=== PATIENT | female | born 1950 | race Caucasian/White ===

== ENCOUNTER 2017-10-03 16:00 | Emergency (ER) | payer MEDICARE, MEDICAID ==
[~2017-10-03] VITALS: Ht 175.3 cm; Wt 97.1 kg
[~2017-10-03 16:00] MED LIST: ASPI81TA82 PO; ENOX100P SQ; METO100T PO; PRAV20 PO; WARF5TAB PO; WARF7.5T4 PO
[2017-10-03 16:08] VITALS: BP 155/72; PULSE 81; RESP 18; TEMP 98; O2SAT 92
--- NOTE | 2017-10-03 16:56 | PD ---
HPI Chief Complaint: Pain: Acute or Chronic Time Seen by Provider: 16:22 Travel History International Travel<30 days: No Contact w/Intl Traveler<30days: No Traveled to known affect area: No History of Present Illness HPI This patient complains of a vague discomfort and contraction like throbbing sensation just above her left clavicle. This occurred on and off during the day yesterday. Today she is not having and she feels fine. She is concerned because she has history of vascular blockage on the right side. She is on Coumadin. No active bleeding. INR 1 week ago was 2.0. Symptoms severity was moderate yesterday but today is improved. No obvious alleviating factors. No exacerbating factors. She did not have pain in her arm. There is no color change or temperature change. Duration of symptoms was 1 day. 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) GERD: No Genitourinary: Yes (UROSTOMY) Headaches: Yes Hepatitis: No Hiatal Hernia: No Hypertension: Yes Immune Disorder: No Implanted Vascular Access Dvce: Yes Kidney Stones: No Musculoskeletal: Yes (PAIN IN LEGS) Neurologic: Yes (TIA) Psychiatric: No Reproductive: No Respiratory: Yes (COPD) Immunizations Current: Yes Migraines: Yes Radiation Therapy: Yes Renal Failure: No Sleep Apnea: No Ulcer: No ?: Not Past Surgical History Abdominal Surgery: No AICD: No Appendectomy: Yes (WITH RADICAL HYSTERECTOMY) Arteriovenous Shunt: No Body Medical Devices: NONE Cardiac Surgery: No Coronary Artery Bypass Graft: No Ear Surgery: No Endocrine Surgery: No Eye Surgery: No Genitourinary Surgery: Yes (RADICAL CYSTECTOMY W/ UROSTOMY) Gynecologic Surgery: Yes (TOTAL HYSTERECTOMY) Hysterectomy: Yes Insulin Pump: No Joint Replacement: No Oral Surgery: No Pacemaker: No Thoracic Surgery: No Other Surgery: Yes (R. ARM BLOOD CLOT REMOVAL) Social History Alcohol Use: No Tobacco Use: No (QUIT 2013) Substance Use: No Allergies-Medications (Allergen,Severity, Reaction): Coded Allergies: ferrous fumarate (Unverified Adverse Reaction, Severe, Nausea/Vomiting, ) TO INTRAVENOUS IRON INFUSION ferrous sulfate (Unverified Adverse Reaction, Severe, Nausea/Vomiting, ) TO INTRAVENOUS IRON INFUSION ferumoxytol (Unverified Adverse Reaction, Severe, Nausea/Vomiting, ) TO INTRAVENOUS IRON INFUSION iron (Unverified Adverse Reaction, Severe, Nausea/Vomiting, 10/03/17) TO INTRAVENOUS IRON INFUSION multivitamin infusion, adult no.4 with vitamin K (Unverified Adverse Reaction, Severe, Nausea/Vomiting, 10/03/17) TO INTRAVENOUS IRON INFUSION multivitamin with iron,other minerals (Unverified Adverse Reaction, Severe , Nausea/Vomiting, 10/03/17) TO INTRAVENOUS IRON INFUSION Reported Meds & Prescriptions Reported Meds & Active Scripts Active Reported Lovenox (Enoxaparin Sodium) 100 Mg/Ml Inj 100 Mg SQ BID Warfarin Sodium 7.5 mg (Warfarin Sodium) 7.5 Mg Tab 7.5 Mg PO ALTERNATING WITH 5MG Warfarin Sodium 5 mg (Warfarin Sodium) 5 Mg Tab 5 Mg PO EVERY OTHER DAY ALTERNATING WITH 7.5MG Aspir-81 (Aspirin) 81 Mg Tab 81 Mg PO DAILY Metoprolol Tartrate 100 mg (Metoprolol Tartrate) 100 Mg Tab 100 Mg PO BID Pravastatin Sodium 20 Mg Tab 20 Mg PO DAILY Review of Systems General / Constitutional: No: Fever Eyes: No: Visual changes HENT: No: Headaches Cardiovascular: No: Chest Pain or Discomfort Respiratory: No: Shortness of Breath Gastrointestinal: No: Abdominal Pain Genitourinary: No: Dysuria Musculoskeletal: Positive: Pain Skin: No Rash Neurologic: No: Weakness Psychiatric: No: Depression Endocrine: No: Polydipsia Hematologic/Lymphatic: No: Easy Bruising Physical Exam Narrative GENERAL: Well-nourished, well-developed patient in no apparent distress. SKIN: Focused skin assessment reveals no rash and nodules. Skin is Warm and dry. HEAD: Atraumatic. Normocephalic. EYES: Pupils equal and round. No scleral icterus. No injection or drainage. ENT: No nasal bleeding or discharge. Mucous membranes pink and moist. NECK: Trachea midline. No JVD. CARDIOVASCULAR: Regular rate and rhythm. No murmur appreciated. RESPIRATORY: No accessory muscle use. Clear to auscultation. Breath sounds equal bilaterally. GASTROINTESTINAL: Abdomen soft, non-tender, nondistended. Hepatic and splenic margins not palpable. MUSCULOSKELETAL: No obvious deformities. No clubbing. No cyanosis. No edema. Has readily palpable left-sided radial pulse. Good sensation and cap refill and color and temperature. Has diminished pulse on the right side but that's chronic per patient and has known blockage there NEUROLOGICAL: Awake and alert. No obvious cranial nerve deficits. Motor grossly within normal limits. Normal speech. PSYCHIATRIC: Appropriate mood and affect; insight and judgment normal. Data Data Last Documented VS Vital Signs Date Time Temp Pulse Resp B/P (MAP) Pulse Ox O2 Delivery O2 Flow Rate FiO2 10/03/17 16:08 98.0 81 18 155/72 (99) 92 Orders Orders Iv Access Insert/Monitor (10/03/17 16:40) Complete Blood Count With Diff (10/03/17 16:40) Basic Metabolic Panel (Bmp) (10/03/17 16:40) Prothrombin Time / Inr (Pt) (10/03/17 16:40) Arterial Segmt Dopp Upper Ext (10/03/17 ) Labs Laboratory Tests Test 10/03/17 16:50 White Blood Count 6.3 TH/MM3 Red Blood Count 4.34 MIL/MM3 Hemoglobin 13.1 GM/DL Hematocrit 38.5 % Mean Corpuscular Volume 88.5 FL Mean Corpuscular Hemoglobin 30.2 PG Mean Corpuscular Hemoglobin Concent 34.2 % Red Cell Distribution Width 12.5 % Platelet Count 149 TH/MM3 Mean Platelet Volume 10.3 FL Neutrophils (%) (Auto) 70.7 % Lymphocytes (%) (Auto) 19.6 % Monocytes (%) (Auto) 7.1 % Eosinophils (%) (Auto) 1.2 % Basophils (%) (Auto) 1.4 % Neutrophils # (Auto) 4.5 TH/MM3 Lymphocytes # (Auto) 1.2 TH/MM3 Monocytes # (Auto) 0.4 TH/MM3 Eosinophils # (Auto) 0.1 TH/MM3 Basophils # (Auto) 0.1 TH/MM3 CBC Comment DIFF FINAL Differential Comment Prothrombin Time 17.8 SEC Prothromb Time International Ratio 1.8 RATIO Blood Urea Nitrogen 22 MG/DL Creatinine 1.20 MG/DL Random Glucose 122 MG/DL Calcium Level 8.9 MG/DL Sodium Level 138 MEQ/L Potassium Level 3.8 MEQ/L Chloride Level 104 MEQ/L Carbon Dioxide Level 26.6 MEQ/L Anion Gap 7 MEQ/L Estimat Glomerular Filtration Rate 45 ML/MIN MDM Medical Decision Making Medical Screen Exam Complete: Yes Emergency Medical Condition: Yes Medical Record Reviewed: Yes Differential Diagnosis Vascular blockage, myalgia, TIA Narrative Course I have reviewed the patient's electronic medical record. Reviewed her hematology visit from October 2016. I called and spoke with her vascular surgeon coverage who is Dr. Brantley. She reviewed the office records and we discussed her symptom presentation. She has no symptoms now and clearly no sign of active ischemia. She recommended arterial ultrasound which I have ordered. IV placed CBC is normal Metabolic profile shows some renal insufficiency with GFR 45 INR on Coumadin is 1.8 GFR reduction is more reason not to do a dye study at this time with the patient has good pulses and no symptoms Unfortunately there [place] no [place] to do [place] arterial Doppler study My plan was to have the son drive her to the main ER where the study could be done. However, patient and son do not want to do this today. She wants to go to the ER tomorrow morning to have this done This is not my recommendation but that is what they have decided. Have advised them to go emergently if she develops acute symptoms She should follow-up with her physician team given her complex history Diagnosis Primary Impression: Neck pain on left side Additional Impressions: PAD (peripheral artery disease) Lupus anticoagulant positive Additional Instructions: Follow-up with primary care physician and vascular physician Recommending left arm arterial Doppler study Med/Other Pt SpecificInfo: Other Disposition: 01 DISCHARGE HOME Condition: Stable Dante Bush MD Oct 03, 2017 16:55
[2017-10-03 17:03] LABS: AUTOMATED NEUTROPHIL # 4.5 TH/MM3 (1.8-7.7); BASOPHIL # 0.1 TH/MM3 (0-0.2); BASOPHIL % 1.4 % (0.0-2.0); EOSINOPHIL # 0.1 TH/MM3 (0-0.4); EOSINOPHIL % 1.2 % (0.0-4.0); HEMATOCRIT 38.5 % (35.0-46.0); HEMOGLOBIN 13.1 GM/DL (11.6-15.3); LYMPH % 19.6 % (9.0-44.0); LYMPHOCYTE # 1.2 TH/MM3 (1.0-4.8); MEAN CELL VOLUME 88.5 FL (80.0-100.0); MEAN CORPUSCULAR HEMOGLOBIN 30.2 PG (27.0-34.0); MEAN CORPUSCULAR HGB CONC 34.2 % (32.0-36.0); MEAN PLATELET VOLUME 10.3 FL (7.0-11.0); MONO % 7.1 % (0.0-8.0); MONOCYTE # 0.4 TH/MM3 (0-0.9); NEUT % 70.7 % (16.0-70.0); PLATELET COUNT 149 TH/MM3 (150-450); RED BLOOD COUNT 4.34 MIL/MM3 (4.00-5.30); RED CELL DISTRIBUTION WIDTH 12.5 % (11.6-17.2); WHITE BLOOD COUNT 6.3 TH/MM3 (4.0-11.0)
[2017-10-03 17:05] VITALS: BP 162/72; PULSE 71; RESP 18; O2SAT 95
[2017-10-03 17:20] LABS: BICARBONATE 26.6 MEQ/L (21.0-32.0); CALCIUM 8.9 MG/DL (8.5-10.1); INTERNATIONAL NORMALIZED RATIO 1.8 RATIO; PROTHROMBIN TIME - PATIENT 17.8 SEC (9.8-11.6)
[2017-10-03 17:24] LABS: CREATININE 1.2 MG/DL (0.50-1.00)
[2017-10-03 18:09] VITALS: BP 144/76
[2017-10-03] MEDS ORDERED: METO100T PO (18:11)
[2017-10-03] MEDS ORDERED: PRAV20TA2 PO (18:11)
[2017-10-03] MEDS ORDERED: ASPI-516 CHEW (18:11)
[2017-10-03] MEDS ORDERED: WARF-60 PO (18:11)
--- NOTE | 2017-10-04 12:54 | EKG ---
Date Performed: 10/03/2017 Time Performed: 16:23:51 PTAGE: 67 years EKG: Sinus rhythm MARKED LEFT AXIS DEVIATION POSSIBLE RIGHT VENTRICULAR CONDUCTION DELAY ABNORMAL ECG INTERPRETATION B ASED ON A DEFAULT AGE OF 40 YEARS PREVIOUS TRACING : 08/16/2016 17.41 Since previous tracing, no significant change noted DOCTOR: Tod Mims Interpretating Date/Time 10/04/2017 12:54:11
== END 2017-10-03 18:12 | disposition home or self-care (01) ==
LOC: PHED 16:00
DX: M54.2 Cervicalgia (principal); I73.9 Peripheral vascular disease, unspecified; D68.62 Lupus anticoagulant syndrome; J44.9 Chronic obstructive pulmonary disease, unspecified; E11.51 Type 2 diabetes mellitus with diabetic peripheral angiopathy without gangrene; I10 Essential (primary) hypertension; Z79.01 Long term (current) use of anticoagulants; R94.31 Abnormal electrocardiogram [ECG] [EKG]
CPT/HCPCS: 80048; 85025; 85610; 93005; 99284

== ENCOUNTER 2017-10-04 10:48 | Emergency (ER) | payer MEDICARE, MEDICAID ==
[~2017-10-04] VITALS: Ht 175.3 cm; Wt 97.0 kg
[~2017-10-04 10:48] MED LIST changes: +ASPI-516 CHEW; -ASPI81TA82 PO; -ENOX100P SQ; -PRAV20 PO; +PRAV20TA2 PO; +WARF-60 PO; -WARF5TAB PO; -WARF7.5T4 PO
[2017-10-04 10:49] VITALS: BP 140/82; PULSE 66; RESP 18; TEMP 98.6; O2SAT 94
--- NOTE | 2017-10-04 11:13 | PD ---
HPI Chief Complaint: Medical Clearance Time Seen by Provider: 11:01 Travel History International Travel<30 days: No Contact w/Intl Traveler<30days: No Traveled to known affect area: No History of Present Illness HPI Patient is a 67-year-old female who was sent to emergency room by her primary care doctor for an arterial Doppler ultrasound of her left upper extremity. 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 Patient currently is on Coumadin, last INR was 2.0. Patient reports that she was seen in emergency room yesterday as she had a throbbing sensation to the left side of her neck of her clavicle, reports concerns for possible DVT to her left upper extremity. Patient reports that she has blood clots all over her body, that she is not a candidate for thrombolysis or for surgical intervention due to her extensive DVT 's. Patient was sent to the emergency room for an arterial ultrasound of her left upper extremity to evaluate for flow. Reports that from there, they would decide further possible intervention of this patient. Patient was seen at [facility] [place] yesterday, an arterial Doppler was not able to be performed, she was supposed to come to [facility] yesterday for this study. At that time, case was reviewed with Dr. Brantley (vascular surgery) who recommended arterial ultrasound. Patient reports resolution of neck pain at this time, patient with no complaints, denies any chest pain or shortness of breath, denies any arm weakness or pulse deficits. 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) GERD: No Genitourinary: Yes (UROSTOMY) Headaches: Yes Hepatitis: No Hiatal Hernia: No Hypertension: Yes Immune Disorder: No Implanted Vascular Access Dvce: Yes Kidney Stones: No Medical other: Yes (PVD, NO STICKS RIGHT ARM) Musculoskeletal: Yes (PAIN IN LEGS) Neurologic: Yes (TIA) Psychiatric: No Reproductive: No Respiratory: Yes (COPD) Immunizations Current: Yes Migraines: Yes Radiation Therapy: Yes Renal Failure: No Sleep Apnea: No Ulcer: No Tetanus Vaccination: > 5 Years Influenza Vaccination: No ?: Not Past Surgical History Abdominal Surgery: No AICD: No Appendectomy: Yes (WITH RADICAL HYSTERECTOMY) Arteriovenous Shunt: No Body Medical Devices: NONE Cardiac Surgery: No Coronary Artery Bypass Graft: No Ear Surgery: No Endocrine Surgery: No Eye Surgery: No Genitourinary Surgery: Yes (RADICAL CYSTECTOMY W/ UROSTOMY) Gynecologic Surgery: Yes (TOTAL HYSTERECTOMY) Hysterectomy: Yes Insulin Pump: No Joint Replacement: No Oral Surgery: No Pacemaker: No Thoracic Surgery: No Other Surgery: Yes (R. ARM BLOOD CLOT REMOVAL) Family History Family Myocardial Infarction: Yes (MOTHER, FATHER) Social History Alcohol Use: No Tobacco Use: No (QUIT 2013) Substance Use: No Allergies-Medications (Allergen,Severity, Reaction): Coded Allergies: iron (Unverified Adverse Reaction, Severe, Nausea/Vomiting, 10/04/17) TO INTRAVENOUS IRON INFUSION Reported Meds & Prescriptions Reported Meds & Active Scripts Active Reported Pravastatin 20 Mg Tab 20 Mg PO DAILY Warfarin 6 Mg Tab 6 Mg PO DAILY Metoprolol Tartrate 100 Mg Tab 100 Mg PO BID Aspirin 81 Mg Chew 81 Mg CHEW DAILY Review of Systems General / Constitutional: No: Fever Eyes: No: Visual changes HENT: No: Headaches Cardiovascular: No: Chest Pain or Discomfort Respiratory: No: Shortness of Breath Gastrointestinal: No: Abdominal Pain Genitourinary: No: Dysuria Musculoskeletal: No: Pain Skin: No Rash Neurologic: No: Weakness Psychiatric: No: Depression Endocrine: No: Polydipsia Hematologic/Lymphatic: No: Easy Bruising Physical Exam Narrative GENERAL: Well-nourished, well-developed patient. SKIN: Focused skin assessment warm/dry. HEAD: Normocephalic. EYES: No scleral icterus. No injection or drainage. NECK: Supple, trachea midline. No JVD or lymphadenopathy. CARDIOVASCULAR: Regular rate and rhythm without murmurs, gallops, or rubs. RESPIRATORY: Breath sounds equal bilaterally. No accessory muscle use. GASTROINTESTINAL: Abdomen soft, non-tender, nondistended. MUSCULOSKELETAL: No cyanosis, or edema. Patient with bounding and palpable radial pulses to LUE, no redness, no edema, no erythema, good capillary refill BACK: Nontender without obvious deformity. No CVA tenderness. Data Data Last Documented VS Vital Signs Date Time Temp Pulse Resp B/P (MAP) Pulse Ox O2 Delivery O2 Flow Rate FiO2 10/04/17 12:54 10/04/17 11:03 69 16 10/04/17 10:49 98.6 94 Room Air Orders Orders Basic Metabolic Panel (Bmp) (10/04/17 11:09) Prothrombin Time / Inr (Pt) (10/04/17 11:09) Act Partial Throm Time (Ptt) (10/04/17 11:09) Iv Access Insert/Monitor (10/04/17 11:09) Arterial Segmt Dopp Upper Ext (10/04/17 11:13) Labs Laboratory Tests Test 10/04/17 11:10 [facility] Medical Decision Making Medical Screen Exam Complete: Yes Emergency Medical Condition: Yes Medical Record Reviewed: Yes Interpretation(s) Vital Signs Date Time Temp Pulse Resp B/P (MAP) Pulse Ox O2 Delivery O2 Flow Rate FiO2 10/04/17 10:49 98.6 66 18 140/82 (101) 94 Room Air Differential Diagnosis Arterial insufficiency, subtherapeutic INR Narrative Course I reviewed patient's previous medical records, arterial ultrasound ordered to evaluate for vascular insufficiency. Patient currently is on Coumadin, will recheck INR AMA: The risks of leaving against medical advice without further evaluation treatment were discussed with the patient. These risks include cardiac dysfunction, cardiac dysrhythmia, possible heart attack, possible stroke or . The patient indicated understanding of these risks and appeared to have the capacity to make this decision. Patient request to leave against behavioral medical director prior to lab work and ultrasound being resulted. She reports that this is her husbands one day off and she doesn't want to spend it in the ER. Reports that she has no pain or symptoms at this time. Request that all studies be sent to her doctor. Patient understands need to follow up with pcp as soon as possible. Patient understands that she may return to the emergency with any time should her symptoms return Diagnosis Primary Impression: Left against medical advice Patient Instructions: General Instructions Additional Instructions: You have decided to leave against medical advice You may return to the ER at any time for re-evaluation of your symptoms Please follow up with your doctor's as soon as possible Disposition: 07 AGAINST MEDICAL ADVICE Condition: Serious Michelle De Oliveira DO Oct 04, 2017 11:13
--- NOTE | 2017-10-04 12:40 | RADRPT ---
EXAM DATE/TIME: 10/04/2017 11:13 [facility] COMPARISON: No previous studies available for comparison. INDICATIONS : LEFT UPPER EXTREMITY TO EVALUATE BLOOD FLOW TECHNIQUE: Segmental examination of the upper extremities was performed. Pulsed-cuff waveform tracings and pressures were recorded. PRESSURES (mmHg): Upper Arm: Left 143 Lower Arm: Left 167 DIGITS: Digit 2: Left 126 FBI: Left 0.88 PULSED CUFF WAVEFORMS: Demonstrate normal amplitude bilaterally. CONCLUSION: Unremarkable segmental evaluation of the upper extremity. James Rodriguez Jr., MD on October 04, 2017 at 12:36 Board Certified Radiologist. This report was verified electronically.
== END 2017-10-04 13:04 | disposition left against medical advice (07) ==
LOC: NEPD 10:48
DX: I82.91 Chronic embolism and thrombosis of unspecified vein (principal); D68.61 Antiphospholipid syndrome; E78.00 Pure hypercholesterolemia, unspecified; I10 Essential (primary) hypertension; Z79.01 Long term (current) use of anticoagulants; Z85.51 Personal history of malignant neoplasm of bladder; Z86.73 Personal history of transient ischemic attack (TIA), and cerebral infarction without residual deficits; Z87.891 Personal history of nicotine dependence
CPT/HCPCS: 93923; 99284

== ENCOUNTER 2017-10-25 12:21 | Emergency (ER) | payer MEDICARE, OTHER ==
[2017-10-25 12:23] VITALS: BP 140/66; PULSE 77; PULSE 86; RESP 16; TEMP 98.2; O2SAT 77
[2017-10-25 13:50] LABS: AUTOMATED NEUTROPHIL # 4.3 TH/MM3 (1.8-7.7); BASOPHIL % 0.7 % (0.0-2.0); EOSINOPHIL % 0.6 % (0.0-4.0); HEMATOCRIT 39.9 % (35.0-46.0); HEMOGLOBIN 13.6 GM/DL (11.6-15.3); LYMPH % 16.8 % (9.0-44.0); MEAN CELL VOLUME 89.3 FL (80.0-100.0); MEAN CORPUSCULAR HEMOGLOBIN 30.4 PG (27.0-34.0); MEAN PLATELET VOLUME 9.5 FL (7.0-11.0); MONO % 12.3 % (0.0-8.0); MONOCYTE # 0.8 TH/MM3 (0-0.9); NEUT % 69.6 % (16.0-70.0); PLATELET COUNT 190 TH/MM3 (150-450); RED BLOOD COUNT 4.47 MIL/MM3 (4.00-5.30); RED CELL DISTRIBUTION WIDTH 13.6 % (11.6-17.2); WHITE BLOOD COUNT 6.2 TH/MM3 (4.0-11.0)
[2017-10-25 14:00] LABS: ALBUMIN 3.3 GM/DL (3.4-5.0); ALT (GPT) 65 U/L (10-53); AST (GOT) 48 U/L (15-37); BICARBONATE 27.9 MEQ/L (21.0-32.0); BLOOD UREA NITROGEN 21 MG/DL (7-18); CALCIUM 9.3 MG/DL (8.5-10.1); CHLORIDE 101 MEQ/L (98-107); CREATININE 1.26 MG/DL (0.50-1.00); GLOMERULAR FILTRATION RATE 42 ML/MIN (>89); GLUCOSE,RANDOM 93 MG/DL (74-106); LIPASE 138 U/L (73-393); SODIUM (NA) 137 MEQ/L (136-145)
[2017-10-25 14:02] LABS: ALKALINE PHOSPHATASE 91 U/L (45-117); TOTAL BILIRUBIN ADULT 0.7 MG/DL (0.2-1.0); TOTAL PROTEIN 7.4 GM/DL (6.4-8.2)
--- NOTE | 2017-10-25 19:51 | PD ---
HPI Chief Complaint: GI Complaint Time Seen by Provider: 19:46 Travel History International Travel<30 days: No Contact w/Intl Traveler<30days: No Traveled to known affect area: No History of Present Illness HPI The patient is a 67 year old female who presents to the [facility] emergency department with a history of abdominal pain that began in the left upper quadrant of the abdomen that radiated into the left lower quadrant. The patient reports that on last Tuesday when she began to have softer stools the abdominal pain resolved. She has had loose BMs that are dark in color and occurring one time per day. She has had nausea and vomiting intermittently over the last week. Her last emesis was yesterday. She last moved her bowel this AM. She reports that she has a history of diverticulitis. She also reports having a history of peptic ulcer disease diagnosed on endoscopy a year ago. The patient incidentally reports that she also had a few polyps on colonoscopy a year ago that were resected. The patient has a past medical history of antiphospholipid antibody disorder and is anticoagulated on Coumadin. Her last INR was done on Tuesday and 2.1. She is currently on 70 mg of Coumadin daily. She saw her channel rebuilder, Dr. Langston earlier today regarding these symptoms. The patient reports that he sent her to emergency department for admission. On review of systems, the patient denies having any recent fevers cough, congestion , neck pain, chest pain, shortness of breath, urinary symptoms, or neurologic symptoms. PFSH Past Medical History Narrative Medical The patient's past medical history is significant for bladder CA, DM-diet controlled (Hemoglobin 6.5), antiphospholipid antibody disorder with recurrent blood clots anticoagulated on coumadin, diverticulitis. Hx Anticoagulant Therapy: Yes Arthritis: No Asthma: No Anxiety: No Depression: No Heart Rhythm Problems: No Cancer: Yes (BLADDER CANCER) Cardiac Catheterization: No High Cholesterol: Yes Chemotherapy: Yes (BLADDER CA) Chest Pain: No Congestive Heart Failure: No COPD: Yes Cerebrovascular Accident: Yes (Stroke) Diabetes: Yes Diminished Hearing: No Deep Vein Thrombosis: Yes (MULTIPLE IN RIGHT ARM, CAUSED BY PICC LINE.) Endocrine: No Gastrointestinal Disorders: Yes (ULCERS IN ESOPHAGUS IN PAST) GERD: No Genitourinary: Yes (UROSTOMY) Headaches: Yes Hepatitis: No Hiatal Hernia: No Hypertension: Yes Immune Disorder: No Implanted Vascular Access Dvce: Yes Kidney Stones: No Musculoskeletal: Yes (PAIN IN LEGS) Neurologic: Yes (TIA) Psychiatric: No Reproductive: No Respiratory: Yes (COPD) Immunizations Current: Yes Migraines: Yes Radiation Therapy: Yes Renal Failure: No Sleep Apnea: No Ulcer: No Past Surgical History Narrative Surgical , Hysterectomy The patient's past surgical history is significant for bladder CA - s/p urostomy s/p radiation, chemotherapy, hysterectomy, appendectomy. Abdominal Surgery: No AICD: No Appendectomy: Yes (WITH RADICAL HYSTERECTOMY) Arteriovenous Shunt: No Body Medical Devices: NONE Cardiac Surgery: No Coronary Artery Bypass Graft: No Ear Surgery: No Endocrine Surgery: No Eye Surgery: No Genitourinary Surgery: Yes (RADICAL CYSTECTOMY W/ UROSTOMY) Gynecologic Surgery: Yes (TOTAL HYSTERECTOMY) Hysterectomy: Yes Insulin Pump: No Joint Replacement: No Oral Surgery: No Pacemaker: No Thoracic Surgery: No Other Surgery: Yes (R. ARM BLOOD CLOT REMOVAL) Social History Alcohol Use: No Tobacco Use: No (QUIT 2013) Substance Use: No Allergies-Medications (Allergen,Severity, Reaction): Coded Allergies: iron (Unverified Adverse Reaction, Severe, Nausea/Vomiting, 10/04/17) TO INTRAVENOUS IRON INFUSION Reported Meds & Prescriptions Reported Meds & Active Scripts Active Reported Pravastatin 20 Mg Tab 20 Mg PO DAILY Warfarin 6 Mg Tab 6 Mg PO DAILY Metoprolol Tartrate 100 Mg Tab 100 Mg PO BID Aspirin 81 Mg Chew 81 Mg CHEW DAILY Review of Systems Except as stated in HPI: all other systems reviewed are Neg General / Constitutional: No: Fever Eyes: No: Visual changes HENT: No: Headaches Cardiovascular: No: Chest Pain or Discomfort Respiratory: No: Shortness of Breath Gastrointestinal: Positive: Nausea, Vomiting, Diarrhea, Abdominal Pain, Changes in Bowel Habits, Indigestion, No: Hematemesis, Hematochezia, Loss of Appetite Genitourinary: No: Dysuria Musculoskeletal: No: Pain Skin: No Rash Neurologic: Positive: Weakness (generalized weakness and fatigue), No: Focal Abnormalities, Change in Mentation, Slurred Speech, Sensory Disturbance Psychiatric: No: Depression Endocrine: No: Polydipsia Hematologic/Lymphatic: No: Easy Bruising Physical Exam Narrative General: The patient is a well-developed well-nourished female in no acute distress. Head and Neck exam: Head is normocephalic atraumatic. Eyes: EOMI, pupils are equal round and reactive to light. Nose: Midline septum with pink mucous membranes Mouth: Dentition unremarkable. Moist mucus membranes. Posterior oropharynx is not erythematous. No tonsillar hypertrophy. Uvula midline. Airway patent. Neck: No palpable lymphadenopathy. No nuchal rigidity. No thyromegaly. Cardiovascular: Regular rate and rhythm without murmurs, gallops, or rubs. Lungs: Clear to auscultation bilaterally. No wheezes, rhonchi, or rales. Abdomen: Soft, without tenderness to palpation in all 4 quadrants of the abdomen. No guarding, rebound, or rigidity. Normal bowel sounds are audible. No tenderness on palpation of McBurney's point. Negative Andrews's sign. Extremities: No clubbing, cyanosis, or edema. No calf tenderness on palpation. Back: No costovertebral angle tenderness to palpation. Neurologic Exam: Grossly nonfocal. Skin Exam: No rash noted. Intact skin that is warm and dry. Data Data Last Documented VS Vital Signs Date Time Temp Pulse Resp B/P (MAP) Pulse Ox O2 Delivery O2 Flow Rate FiO2 10/25/17 12:23 98.2 86 16 140/66 (90) 77 Orders Orders Complete Blood Count With Diff (10/25/17 12:55) Comprehensive Metabolic Panel (10/25/17 12:55) Lipase (10/25/17 12:55) Prothrombin Time / Inr (Pt) (10/25/17 12:55) Act Partial Throm Time (Ptt) (10/25/17 12:55) Type And Screen (10/25/17 12:55) Ct Abd/Pel W Iv Contrast(Rout) (10/25/17 19:49) Sodium Chloride 0.9... W/Pantoprazole In (10/25/17 20:49) Sodium Chloride 0.9... W/Pantoprazole In (10/25/17 20:49) Sodium Chlor 0.9% 1000 Ml Inj (Ns 1000 M (10/25/17 20:00) Iodixanol 320 Inj (Rad Ct) (Visipaque 32 (10/25/17 21:25) Pantoprazole (Protonix) (10/25/17 22:00) Labs Laboratory Tests Test 10/25/17 13:20 10/25/17 20:20 White Blood Count 6.2 TH/MM3 Red Blood Count 4.47 MIL/MM3 Hemoglobin 13.6 GM/DL Hematocrit 39.9 % Mean Corpuscular Volume 89.3 FL Mean Corpuscular Hemoglobin 30.4 PG Mean Corpuscular Hemoglobin Concent 34.0 % Red Cell Distribution Width 13.6 % Platelet Count 190 TH/MM3 Mean Platelet Volume 9.5 FL Neutrophils (%) (Auto) 69.6 % Lymphocytes (%) (Auto) 16.8 % Monocytes (%) (Auto) 12.3 % Eosinophils (%) (Auto) 0.6 % Basophils (%) (Auto) 0.7 % Neutrophils # (Auto) 4.3 TH/MM3 Lymphocytes # (Auto) 1.0 TH/MM3 Monocytes # (Auto) 0.8 TH/MM3 Eosinophils # (Auto) 0.0 TH/MM3 Basophils # (Auto) 0.0 TH/MM3 CBC Comment DIFF FINAL Differential Comment Blood Urea Nitrogen 21 MG/DL Creatinine 1.26 MG/DL Random Glucose 93 MG/DL Total Protein 7.4 GM/DL Albumin 3.3 GM/DL Calcium Level 9.3 MG/DL Alkaline Phosphatase 91 U/L Aspartate Amino Transf (AST/SGOT) 48 U/L Alanine Aminotransferase (ALT/SGPT) 65 U/L Total Bilirubin 0.7 MG/DL Sodium Level 137 MEQ/L Potassium Level 4.4 MEQ/L Chloride Level 101 MEQ/L Carbon Dioxide Level 27.9 MEQ/L Anion Gap 8 MEQ/L Estimat Glomerular Filtration Rate 42 ML/MIN Lipase 138 U/L Prothrombin Time 27.4 SEC Prothromb Time International Ratio 2.7 RATIO Activated Partial Thromboplast Time 39.9 SEC [facility] Medical Decision Making Medical Screen Exam Complete: Yes Emergency Medical Condition: Yes Medical Record Reviewed: Yes Interpretation(s) Last Impressions Abdomen/Pelvis CT 10/25/171948 Signed Impressions: Service Date/Time: Wednesday, October 25, 2017 20:52 - CONCLUSION: 1. No obstruction, inflammatory changes or other acute abnormality demonstrated. 2. Previous cystectomy with ureteral diversion and ileal conduit/ostomy of the right lower quadrant. Katelyn-stomal hernia containing colon but does not appear to be of any acute clinical significance. 3. Diverticulosis of the left side of the colon without evidence of diverticulitis. Adrian Yeager MD Differential Diagnosis Diverticulitis, versus diverticulosis, versus peptic ulcer disease, versus gastritis Narrative Course During the course of the patients emergency department visit, the patients history, examination, and differential diagnosis were reviewed with the patient. The patient was placed on a vehicle monitor technician with oximetry and frequent blood pressure monitoring. The patient had IV access obtained and blood work sent for analysis. The patient initially had ordered Protonix with a Protonix drip, normal saline IV fluids The patients laboratory studies were reviewed and remarkable for a white count of 6.2, hemoglobin 13.6, platelets 190 with monocytes 12.3, CMP is remarkable for a BUN of 21, creatinine 1.26 which is similar to her baseline, AST 48, ALT 65, lipase 138, PT 27.4, INR 2.7, PTT 39.9. Radiology studies were reviewed and remarkable for a CT scan of the abdomen and pelvis that shows no obstruction, inflammatory changes, or other acute abnormality. A call was placed out to the patient's channel rebuilder, Dr. Langston, I spoke to Dr. Donaldson who is covering. He reports that he was not given any information from Dr. Langston regarding the patient. We did have a lengthy discussion regarding the patient's laboratory studies, rectal examination that was negative for blood , and normal vital signs. I explained That I did also discuss this patient's case with Dr. Fletcher who came in to see the patient in the emergency department while he was rounding on other patients. The patient did not appear to meet admission criteria. Dr. Donaldson was agreeable with the plan for the patient to be discharged to follow-up with her stenographer print shop. He reports that she has not been on any acid reducers over the last year, therefore the patient will be started on Protonix daily until she is able to follow-up with the stenographer print shop. The patient is resting comfortably and feels better, is alert and in no distress. The patients results and examination findings were discussed with the patient. The repeat examination is unremarkable and benign. The history, exam, diagnostic testing, and current condition do not suggest any significant pathology to warrant further testing, continued ED treatment, admission, or surgical evaluation at this point. The vital signs have been stable. The patient does not have uncontrollable pain, intractable vomiting, or other significant symptoms. The patient's condition is stable and appropriate for discharge. The patient will pursue further outpatient evaluation with a primary care physician or other designated or consulting physician as indicated in the discharge instructions. The patient expressed understanding and was agreeable with this plan. Physician Communication Physician Communication The patient's case including history, pertinent physical examination findings, and laboratory studies were discussed with Dr. Donaldson and Dr. Fletcher. It was agreed that the patient would be able to be discharged home with follow-up with her stenographer print shop as an outpatient. Diagnosis Primary Impression: Diarrhea Qualified Codes: R19.7 - Diarrhea, unspecified Additional Impressions: Dark stools Anticoagulated on Coumadin Referrals: Training Generalist call for appointment Primary Care Physician 2 days Patient Instructions: Chronic Diarrhea (ED), General Instructions Med/Other Pt SpecificInfo: Prescription(s) given Scripts Pantoprazole (Protonix) 40 Mg Tab 40 MG PO DAILY for Reflux, #30 TAB 0 Refills Prov: Georgette Trejo MD 10/25/17 Disposition: 01 DISCHARGE HOME Condition: Stable Georgette Trejo MD Oct 25, 2017 19:51
[2017-10-25] MEDS ORDERED: SODIUM CHLOR 0.9% 1000 ML INJ 1,000 ML IV SCH (20:00)
[2017-10-25] MEDS ORDERED: PANTOPRAZOLE INJ 80 MG in SODIUM CHLORIDE 0.9% INJ 100 ML IV SCH (20:49)
[2017-10-25] MEDS ORDERED: PANTOPRAZOLE INJ 80 MG in SODIUM CHLORIDE 0.9% INJ 35 ML IV ONE (20:49)
[2017-10-25 20:51] LABS: INTERNATIONAL NORMALIZED RATIO 2.7 RATIO; PROTHROMBIN TIME - PATIENT 27.4 SEC (9.8-11.6)
[2017-10-25] MEDS ORDERED: IODIXANOL 320 MG/ML 10 ML VIAL (for Rad CT) IVCONTRAST ONE (21:25)
--- NOTE | 2017-10-25 21:30 | RADRPT ---
EXAM DATE/TIME: 10/25/2017 20:52 [facility] COMPARISON: Report only CT ABDOMEN & PELVIS W CONTRAST, May 04, 2014, 8:09. INDICATIONS : Left side abdominal pain with dark stool for one month. IV CONTRAST: 45 cc Visipaque (iodixanol) IV ORAL CONTRAST: No oral contrast ingested. RADIATION DOSE: 8.99 CTDIvol (mGy) MEDICAL HISTORY : Hypertension. Carcinoma, bladder. Ulcers.DVT. Stroke. SURGICAL HISTORY : Hysterectomy. Cystectomy. ENCOUNTER: Initial ACUITY: 1 month PAIN SCALE: 6/10 LOCATION: Left abdomen. TECHNIQUE: Volumetric scanning of the abdomen and pelvis was performed. Using automated exposure control and ad justment of the mA and/or kV according to patient size, radiation dose was kept as low as reasonably achievable to obtain optimal diagnostic quality images. DICOM format image data is available electro nically for review and comparison. FINDINGS: Cystectomy changes with ureteral divergent and ileal conduit again noted. Ostomy is of the right lowe r quadrant. There is a peristomal hernia containing proximal transverse colon but without associated obstruction or perceptible inflammatory changes. The defect measures 26 mm across. No evidence of str angulation. Similar findings were described previously. Further distal, there're scattered diverticul a of the descending and sigmoid portions of the colon but also without associated inflammatory change s. Stomach and small bowel are within normal limits. No perceptible mass. The liver, spleen, pancreas and adrenal glands are within normal limits. No hydronephrosis or other a cute abnormality seen of either kidney. There is atherosclerosis of the abdominal aorta. No aneurysm. Visualized lung bases are clear. No acute abnormality seen of the visualized osseous structures. CONCLUSION: 1. No obstruction, inflammatory changes or other acute abnormality demonstrated. 2. Previous cystectomy with ureteral diversion and ileal conduit/ostomy of the right lower quadrant. Katelyn-stomal hernia containing colon but does not appear to be of any acute clinical significance. 3. Diverticulosis of the left side of the colon without evidence of diverticulitis. Adrian Yeager MD on October 25, 2017 at 21:23 Board Certified Radiologist. This report was verified electronically.
[2017-10-25 21:59] VITALS: BP 169/81; PULSE 82; RESP 18; O2SAT 98
[2017-10-25] MEDS ORDERED: PANTOPRAZOLE SOD 40 MG DELAYED RELEASE TAB PO ONE ×2 (22:00→22:15)
[2017-10-25] MEDS ORDERED: PROT40TA PO (22:06)
== END 2017-10-25 23:25 | disposition home or self-care (01) ==
LOC: NEPE 12:21
DX: R19.7 Diarrhea, unspecified (principal); E78.00 Pure hypercholesterolemia, unspecified; J44.9 Chronic obstructive pulmonary disease, unspecified; E11.9 Type 2 diabetes mellitus without complications; I10 Essential (primary) hypertension; Z85.51 Personal history of malignant neoplasm of bladder; Z79.01 Long term (current) use of anticoagulants; Z86.73 Personal history of transient ischemic attack (TIA), and cerebral infarction without residual deficits; Z86.718 Personal history of other venous thrombosis and embolism
CPT/HCPCS: 74177; 80053; 83690; 85025; 85610; 85730; 99285; Q9967